=== PATIENT | male | born 1995 | race Hispanic/Latino ===

== ENCOUNTER 2019-07-07 13:49 | Emergency (ER) | payer OTHER ==
[2019-07-07] MEDS ORDERED: KETOROLAC TROMETHAMINE 60 MG/2 ML VIAL ONE (15:50)
== END 2019-07-07 16:27 | disposition home or self-care (01) ==
LOC: EDH 13:49
DX: J06.9 Acute upper respiratory infection, unspecified (principal); R50.9 Fever, unspecified
CPT/HCPCS: 87804 ×2; 87880; 96372; 99284; J1885